=== PATIENT | female | born 1995 | race Caucasian/White ===

== ENCOUNTER → 2018-02-01 | Outpatient (CLI) | payer OTHER, BC ==
--- NOTE | 2018-02-01 10:25 | RADIOLOGY IMAGING REPORT ---
FACILITY: [facility] PATIENT NAME: Abbie Bonilla : 1995 MR: [id number] V: [id number] EXAM DATE: ORDERING PHYSICIAN: CHELY POE TECHNOLOGIST: [place] [facility] [place]: Abbie Bonilla : 1995 Visit/Account:[id number] Date of Sevice: 02/01/2018 Technique: US SINGLE ORGAN HISTORY: Left upper quadrant pain Comparison studies: None FINDINGS: Grayscale, Doppler and color images were obtained for a limited ultrasound of the spleen an d left kidney. The spleen is normal in size, contour and echotexture measuring 8.7 cm. The left kidney is normal in size, contour and echotexture; it measures 9.7 x 4.1 x 5.5 cm. No evide nce of left-sided hydronephrosis. Normal vascular waveforms are noted. IMPRESSION: 1. Unremarkable limited ultrasound of the left kidney and spleen. Report Dictated By: Aaron Bella DO at 02/01/2018 10:19 AM Report E-Signed By: Aaron Bella DO at 02/01/2018 10:21 AM WSN:[id number]
--- NOTE | 2018-02-01 10:27 | RADIOLOGY IMAGING REPORT ---
FACILITY: [facility] [place] PATIENT NAME: Abbie Bonilal : 1995 MR: [id number] V: [id number] EXAM DATE: ORDERING PHYSICIAN: CHELY POE TECHNOLOGIST: Location: [facility] Patient: Abbie Bonilla : 1995 Visit/Account:[id number] Date of Sevice: 02/01/2018 PELVIC HISTORY: Left lower quadrant pain TECHNIQUE: There has been satisfactory transabdominal/transvaginal ultrasonic evaluation of the pelvi s. COMPARISON: None. FINDINGS: Uterus: measures: 7.3 cm length x 3.2 cm AP x 4.0 cm transverse. Myometrium: Unremarkable. Endometrium: Unremarkable; endometrial thickness 5 mm. Cervix: Grossly negative. Ovaries: Right - normal in size, contour and echotexture Left - normal in size, contour and echotexture Blood flow is documented in each ovary by duplex Doppler ultrasound. Adnexa: Grossly unremarkable. Free pelvic fluid: Mild. Bladder: Distended and then empty. IMPRESSION: 1. Mild free fluid in the cul-de-sac; otherwise normal pelvic ultrasound. Report Dictated By: Aaron Bella DO at 02/01/2018 10:21 AM Report E-Signed By: Aaron Bella DO at 02/01/2018 10:23 AM WSN:[id number]
== END ==
LOC: US 08:21
PROVIDERS: ATTEND Family Medicine
DX: R10.32 Left lower quadrant pain (principal); R10.12 Left upper quadrant pain
CPT/HCPCS: 76705; 76856